=== PATIENT | female | born 1940 | race Caucasian/White ===

== ENCOUNTER 2017-10-15 13:21 | Outpatient (CLI) | payer OTHER, MEDICARE ==
--- NOTE | 2017-10-15 18:42 | MRI ---
MRI CERVICAL SPINE WITHOUT CONTRAST: INDICATIONS: Cervical radiculopathy with bilateral , right greater than left. COMPARISON: No comparisons are available. TECHNIQUE: Multiplanar, multisequence MR images were obtained of the cervical spine without IV contrast. FINDINGS: The visualized aspects of the posterior fossa are unremarkable. There is a bony hemangioma at C7 and at T2. At the C2-C3 level, there is a central protrusion mildly effacing the ventral subarachnoid space and contacting the central aspect of the spinal cord, without evidence of cord compression. There are se day left facet joint degenerative changes and mild to moderate left neural foraminal narrowing. At C3-C4, there is a broad-based disk bulge with uncovertebral hypertrophy and facet joint degenerati ve change inducing mild to moderate bilateral neural foraminal narrowing and mild central canal narro wing. At C4-C5, there is a broad-based bulge with facet hypertrophy and uncovertebral hypertrophy inducing mild bilateral neural foraminal narrowing and mild central canal narrowing. At C5-C6, there is uncovertebral hypertrophy with facet joint degenerative change, greater on the lef t, inducing severe left and mild to moderate right neural foraminal narrowing. At C6-C7, there is a broad-based bulge, uncovertebral hypertrophy, and facet joint degenerative looney e, inducing moderate left and mild to moderate right neural foraminal narrowing. There is mild centr al canal narrowing at this level. At C7-T1, there is no appreciable central canal or neural foraminal narrowing. IMPRESSION: Multilevel central canal and neural foraminal narrowing, as detailed above. POS: [facility]
== END 2017-10-15 13:22 | disposition home or self-care (01) ==
LOC: TBSIIMAG 13:21
PROVIDERS: ATTEND Neurological Surgery
DX: M54.12 Radiculopathy, cervical region (principal); M48.02 Spinal stenosis, cervical region; M99.81 Other biomechanical lesions of cervical region
CPT/HCPCS: 72141

== ENCOUNTER 2017-11-16 07:34 | Outpatient (CLI) | payer OTHER, MEDICARE ==
--- NOTE | 2017-11-16 09:27 | MRI ---
RIGHT SHOULDER MRI WITHOUT IV CONTRAST: HISTORY: A 7-year-old female with a history of right shoulder pain since June. FINDINGS: Multiplanar, multisequence MRI examination of the right shoulder is performed. AC joint degenerative changes are noted with some downsloping of the anterior and lateral acromion with some fluid in suba cromial and subdeltoid bursa and a small undersurface lateral acromial spur. Partial thickness under surface minimally delaminating tear of the supraspinatus tendon is noted, but no complete full thickn ess retracted tear. Small low-grade undersurface tear of the infraspinatus. Subscapularis tendon de monstrates several undersurface and delaminating tears. The biceps tendon has a slightly split-type appearance in the region of the upper bicipital groove probably related to a split-type tear extendin g intraarticularly with some associated biceps tendinopathy. Somewhat blunted degenerated-appearing labrum. Rotator cuff muscles within normal limits for signal and volume. IMPRESSION: Partial thickness undersurface and delaminating tears of the supraspinatus and infraspinatus and subs capularis tendons. Minimal split-type tear of the biceps tendon at the level of the upper bicipital groove. Blunted degenerative-appearing labrum. Acromioclavicular joint arthrosis with fluid within the subacromial subdeltoid bursa. POS: OFF
== END 2017-11-16 07:35 | disposition home or self-care (01) ==
LOC: TBSIIMAG 07:34
PROVIDERS: ATTEND Orthopaedic Surgery
DX: M25.511 Pain in right shoulder (principal); M75.101 Unspecified rotator cuff tear or rupture of right shoulder, not specified as traumatic; S46.911A Strain of unspecified muscle, fascia and tendon at shoulder and upper arm level, right arm, initial encounter; M19.011 Primary osteoarthritis, right shoulder

== ENCOUNTER 2017-12-02 10:30 | Observation (INO) | payer OTHER, MEDICARE ==
[2017-12-02] MEDS ORDERED: Nitroglycerin 2% Ointment 1 INCH/1 GM Packet ONE (10:52)
[2017-12-02 10:59] LABS: #Eosinphils 0.2 thou/uL (0.0-0.7); #Lymphocytes 2.4 thou/uL (1.20-3.40); #Monocytes 0.6 thou/uL (0.11-0.59); #Neutrophils 7.6 thou/uL (1.40-6.50); %Basophils 0.3 % (0.0-1.0); %Eosinophils 1.7 % (0.0-10.0); %Lymphocytes 22.7 % (21.0-51.0); %Monocytes 5.1 % (0.0-10.0); %Neutrophils 70.2 % (42.0-75.0); Hemoglobin 13.4 g/dL (12.0-16.0); Mean Corpuscular HGB CONC 34.2 g/dL (32.0-36.0); Mean Corpuscular Hemoglobin 31.2 pg (27.0-31.0); Mean Corpuscular Volume 91.4 fl (81.0-99.0); Mean Platelet Volume 6.6 fL (7.4-10.4); Platelet Count 247 thou/uL (130-400); Red Blood Cell (RBC) Count 4.28 mill/uL (4.20-5.40); White Blood Cell (WBC) Count 10.8 thou/uL (4.8-10.8)
[2017-12-02 11:21] LABS: ALT (SGPT) 11 U/L (8-55); AST (SGOT) 15 U/L (5-34); Albumin 4.1 g/dL (3.4-4.8); Alkaline Phosphatase 126 U/L (40-150); Anion Gap 13 mmol/L (10-20); BUN (Urea Nitrogen) 11 mg/dL (9.8-20.1); Bilirubin, Total 0.4 mg/dL (0.2-1.2); CK (CPK) 39 U/L (29-168); Calc. Creatinine Clearance 0 mL/min (70-130); Calcium 9.6 mg/dL (7.8-10.44); Carbon Dioxide 28 mmol/L (23-31); Chloride 104 mmol/L (98-107); Estimated GFR-MDRD 87; Globulin 3.3 g/dL (2.4-3.5); Glucose 101 mg/dL (83-110); Lipase 39 U/L (8-78); Potassium 4.2 mmol/L (3.5-5.1); Protein, Total 7.4 g/dL (6.0-8.3); Sodium 141 mmol/L (136-145)
[2017-12-02 11:23] LABS: CKMB 1.1 ng/mL (0-6.6); Troponin I Less than 0.010 ng/mL (< 0.028)
--- NOTE | 2017-12-02 13:25 | RAD ---
CHEST 1 VIEW: HISTORY: Pain. COMPARISON: 03/26/15. FINDINGS: Atherosclerosis of the aorta. Normal cardiac silhouette. The pulmonary vessels and hilum are normal . Costophrenic angles are clear. Lungs are hyperinflated. Interstitial opacities in the lung bases may represent edema or infiltrate upon chronic change. No pneumothorax. IMPRESSION: Bibasilar interstitial opacities due to edema or infiltrate. Continued surveillance. POS: [facility]
[2017-12-02] MEDS ORDERED: Enoxaparin Sodium 60 MG/0.6 ML SYRINGE ONE (13:29)
[2017-12-02 14:15] LABS: Troponin I 0.012 ng/mL (< 0.028)
[2017-12-02] MEDS ORDERED: Acetaminophen 325 MG TAB PO PRN (15:31)
[2017-12-02] MEDS ORDERED: Ondansetron ODT 4 MG TAB PO PRN (15:31)
[2017-12-02] MEDS ORDERED: Ondansetron HCl/PF 4 MG/2 ML Vial IVP PRN (15:31)
[2017-12-02 16:26] VITALS: BMI 19.9
[2017-12-02] MEDS: Metoprolol Tartrate 25 MG TAB PO SCH (17:24)
--- NOTE | 2017-12-02 17:49 | HP ---
DATE OF ADMISSION: 12/02/2017 TIME OF SERVICE: 1530 hours. PRIMARY CARE PHYSICIAN: Dr. Hussain Easton. CHIEF COMPLAINT: Chest discomfort. 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 She was at work today and developed acute onset of left-sided jaw tightness that radiated down to the center of her chest. She immediately was concerned that it did not go away and presented to the [facility] for evaluation. She had episodes like this before, but has not had evaluation. He r last stress test was about 15 years ago. She went to the ER for evaluation. There, her EKG and labs were normal. Her blood pressure on arriv al was elevated at 212/115 and after nitro paste was down to 169/93. Her symptoms resolved with the initial set of medications I gave her. She denied any diaphoresis, nausea or vomiting. No cough or sputum production, no pleuritic component. She does not know of any history of her having exertional chest pain at all. It is better now. She is eating a chicken sandwich from wings and things and otherwise has no other current complaints. PAST MEDICAL HISTORY: 1. Hypertension. 2. Right arm pain, she has seen Orthopedics and has seen General Surgery about possible carpal tunne l problems. She has not seen a neurologist yet. MEDICATIONS: 1. Atenolol 25 mg p.o. daily. 2. Ibuprofen 800 mg t.i.d. p.r.n. 3. Tramadol as needed for her arm pain. PAST SURGICAL HISTORY: Includes, 1. Left knee ORIF after following fracture. 2. Bilateral hip repairs after fracture. 3. Hysterectomy. 4. Appendectomy remotely. ALLERGIES: VANCOMYCIN causes red man syndrome but also causes throat swelling, difficulty breathing. FAMILY HISTORY: Significant for dad at age 75 with lung cancer. Mom at age 83 with a hear t attack with symptoms of heart disease starting in her 50s. SOCIAL HISTORY: Negative for past tobacco, but does not used any in about a year. She smoked about 1/2 pack per day for about 25 years. 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 REVIEW OF SYSTEMS: All systems were reviewed and negative except as stated as per HPI. PHYSICAL EXAMINATION: VITAL SIGNS: Temperature 98.7, pulse 67, blood pressure initially was 212/115 and then 169/93, respi ratory rate 20, satting 97% on room air. GENERAL: She is awake. She is alert. She is oriented x3. She is age appropriate appearing white f emale, appears to be in 0 distress. HEENT: Normocephalic, atraumatic. Pupils equal, round, react to light bilaterally, mucous membranes are moist. No visible lesions or thrush. NECK: Supple. She has no lymphadenopathy, JVD or thyromegaly. She has normal carotid upstrokes wit hout bruits. CHEST: Clear to auscultation bilaterally. She has good air movement. Symmetric chest excursion. N o prolonged expiratory phase. No wheezes, no rales or rhonchi. CARDIOVASCULAR: Normal S1, S2. No S3, S4. She has no murmurs. ABDOMEN: Soft. It is nontender, nondistended. Her bowel sounds present in all 4 quadrants. No eliot ound, rigidity or guarding. EXTREMITIES: No cyanosis, of clubbing. She has got no edema, 2+ dorsalis pedis, and posterior tibia l pulses bilaterally. SKIN: Warm, moist and well perfused. She has no rash, no lesions. Capillary refill less than 2 sec onds. MUSCULOSKELETAL: Normal to inspection. Large joints appear normal. There is no inflammation, no pa lpable effusions. NEUROLOGIC: Shows cranial nerves II through XII are grossly intact. She has no focal neurologic def icits, 5/5 strength in all 4 of her left lower extremities and normal speech pattern. LABORATORY DATA: Sodium 141, potassium 4.8, chloride 104, bicarb 28, BUN 11, creatinine 0.66, glucos e 101 and calcium 9.6. Liver function completely within normal limits. CBC showed a white count of 10.8, hemoglobin 13.4, hematocrit 39.1, and platelet count is 247,000. Total CK was 39. CK-MB was 1.1. Troponin I was undetectable less than 0.010. Lipase of 39. D-dime r barely elevated at 0.44 with an upper limit of normal being 0.43 and BNP normal at 74.7. Her chest x-ray showed slight hyperexpansion but no acute cardiopulmonary disease. CT angiogram could not be done due to iodine allergy. ASSESSMENT AND PLAN: 1. Jaw and chest discomfort. Certainly, it could represent acute coronary syndrome. We will contin ue metoprolol, nitro paste, p.r.n. hydralazine to keep her pressure control, aspirin and she got a do se of Lovenox in the emergency department. We will get serial cardiac biomarkers, watch her on the t elemetry monitor and watch her overnight. She does well and has negative markers, may need a stress test in the morning. 2. Hypertensive urgency. Blood pressure 212/115 on arrival, her symptoms resolved and her pressure came down. Certainly, it could be subendocardial injury secondary to her increased pressures. We wi ll again trend her markers as above. 3. Hypertension, essential, chronic. The patient is on atenolol been on that for a long time. We w ill hold that for now. She is going to be on metoprolol, and nitro paste for the time being. 4. Chronic right arm pain: Recommend the patient follow up with Neurology as an outpatient. She ma y need an EMG and nerve conduction study to assess her weakness and pain. The patient will be placed in observation overnight.
[2017-12-02 18:38] LABS: Troponin I Less than 0.010 ng/mL (< 0.028)
[2017-12-02] MEDS: Nitroglycerin 2% Ointment 1 INCH/1 GM Packet TOP SCH (21:03)
[2017-12-02] MEDS: Famotidine 20 MG TAB PO SCH (21:03)
[2017-12-03 00:35] LABS: CKMB 0.8 ng/mL (0-6.6); Troponin I Less than 0.010 ng/mL (< 0.028)
[2017-12-03] MEDS: Nitroglycerin 2% Ointment 1 INCH/1 GM Packet TOP SCH (05:59)
[2017-12-03 06:46] LABS: #Basophils 0.1 thou/uL (0.0-0.2); #Eosinphils 0.1 thou/uL (0.0-0.7); #Monocytes 0.5 thou/uL (0.11-0.59); #Neutrophils 4.5 thou/uL (1.40-6.50); %Basophils 0.9 % (0.0-1.0); %Eosinophils 1.6 % (0.0-10.0); %Lymphocytes 27.9 % (21.0-51.0); %Monocytes 6.5 % (0.0-10.0); %Neutrophils 63.2 % (42.0-75.0); Hemoglobin 11.9 g/dL (12.0-16.0); Mean Corpuscular HGB CONC 33.9 g/dL (32.0-36.0); Mean Corpuscular Hemoglobin 31.3 pg (27.0-31.0); Mean Corpuscular Volume 92.1 fl (81.0-99.0); Mean Platelet Volume 6.8 fL (7.4-10.4); Platelet Count 215 thou/uL (130-400); RBC Distribution Width 11.9 % (11.5-14.5); White Blood Cell (WBC) Count 7.1 thou/uL (4.8-10.8)
[2017-12-03 07:05] LABS: Anion Gap 10 mmol/L (10-20); BUN (Urea Nitrogen) 10 mg/dL (9.8-20.1); Calc. Creatinine Clearance 70 mL/min (70-130); Calcium 9.1 mg/dL (7.8-10.44); Carbon Dioxide 28 mmol/L (23-31); Cardiac Risk 3.5 (Less than 4.5); Chloride 105 mmol/L (98-107); Cholesterol 147 mg/dl (< 200 Desired); Estimated GFR-MDRD Greater than 90; Glucose 99 mg/dL (83-110); HDL Cholesterol 42 mg/dL (>60 Neg Risk); LDL Cholesterol, Calculated 86 mg/dL; Potassium 3.8 mmol/L (3.5-5.1); Sodium 139 mmol/L (136-145); Triglycerides 95 mg/dL (Less than 150)
[2017-12-03 07:10] LABS: CKMB 0.7 ng/mL (0-6.6); Troponin I Less than 0.010 ng/mL (< 0.028)
[2017-12-03] MEDS ORDERED: Metoprolol Tartrate 25 MG TAB PO SCH (09:00)
[2017-12-03] MEDS ORDERED: Aspirin 325 MG TAB PO SCH (09:00)
[2017-12-03] MEDS ORDERED: Lisinopril 10 MG TAB PO SCH (09:15)
--- NOTE | 2017-12-03 09:15 | PDOC.PN ---
- Subjective Encounter Start Date: 12/03/17 Encounter Start Time: 10:10 Subjective: Patient without further chest pain. 5-6 months of right arm and bilateral -: shoulder pain, interferring with sleep. BP has been up since then. MRI -: neck results by ortho pending. - Objective Resuscitation Status: Resuscitation Status FULL:Full Resuscitation MAR Reviewed: Yes Vital Signs & Weight: Vital Signs (12 hours) Temp Pulse Resp BP Pulse Ox 12/03/17 08:00 98.8 F 72 18 12/03/17 07:20 98.8 F 72 18 204/95 H 94 L 12/03/17 04:32 98.3 F 73 14 175/90 H 94 L 12/03/17 00:25 79 14 183/88 H 94 L Weight Weight 131 lb 4.8 oz I&O: 12/02/17 12/03/17 12/04/17 06:59 06:59 06:59 Intake Total 270 Balance 270 Result Diagrams: 12/03/17 06:14 12/03/17 06:14 Phys Exam - Physical Examination Constitutional: NAD HEENT: moist MMs Respiratory: no wheezing, no rales, no rhonchi Cardiovascular: RRR, no significant murmur Gastrointestinal: soft, positive bowel sounds Neurological: non-focal, moves all 4 limbs Psychiatric: normal affect, A&O x 3 Dx/Plan (1) Chest pain, rule out acute myocardial infarction Code(s): R07.9 - CHEST PAIN, UNSPECIFIED Status: Resolved Comment: cardiac markers and EKG negative, will need outpatient stress test (2) Hypertensive emergency Code(s): I16.1 - HYPERTENSIVE EMERGENCY Status: Acute Comment: Still with labile HTN, will increase meds - Plan cont current plan of care Increase Metoprolol, add low dose ARB. -: Will need outpatient f/u with cardiology and likely stress test -: Monitor BP and release if better after lunch. * . - Discharge Day Encounter end time: 10:25
[2017-12-03] MEDS: Metoprolol Tartrate 25 MG TAB PO SCH (09:26)
[2017-12-03] MEDS: Famotidine 20 MG TAB PO SCH (09:27)
[2017-12-03] MEDS ORDERED: Valsartan 80 MG TAB PO SCH (10:30)
[2017-12-03 12:43] VITALS: BP 174/84; TEMP 98.5
--- NOTE | 2017-12-03 13:51 | DIS ---
PRIMARY CARE PHYSICIAN: Delmy Bosch NP REASON FOR ADMISSION: Chest pain. DIAGNOSES AT DISCHARGE: 1. Chest pain, resolved. 2. Hypertensive emergency, resolved. 3. Chronic right upper extremity pain. 4. Essential hypertension, uncontrolled. PROCEDURES: None. CONSULTATIONS: None. 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 She is seeing Orthopedics for this and was actually supposed to get her MRI results of her neck today. She came i n because she was having acute onset of left-sided jaw tightness radiating down the center of her [address] and was noted to have severe elevated blood pressures. Blood pressure in the emergency room was 2 12/115. The patient was given nitro paste and blood pressure improved, and her pain went away. She was watched overnight on telemetry, had negative cardiac markers x3, normal EKG. Her blood pressure rebounded and was in the 200s this morning, so we changed her home medications to metoprolol 50 mg tw ice a day as well as adding an ARB, because lisinopril apparently causes a cough in her. The patient 's blood pressure improved markedly with 170s at the time of discharge, and she was asymptomatic. DISCHARGE MANAGEMENT: Discharged home. Follow up with primary care physician in the next 2-3 days t o continue titrating blood pressure medicines. She is to check her blood pressure daily and make a l og to bring in to her primary care physician. She also needs to follow up with a high density talc coater operator in the next 1-2 weeks and will likely end up needing an outpatient stress test. ACTIVITY: As tolerated. DIET: Healthy heart, low sodium diet. DISCHARGE MEDICATIONS: 1. Aspirin 81 mg daily, 30 tablets dispensed. 2. Metoprolol tartrate 50 mg twice a day, 60 tablets dispensed. 3. Valsartan 80 mg daily, 30 tablets dispensed.
[2017-12-04] MEDS ORDERED: Lisinopril 10 MG TAB PO SCH (09:00)
[2017-12-04] MEDS ORDERED: Valsartan 80 MG TAB PO SCH (09:00)
--- NOTE | 2017-12-08 15:08 | EKG ---
Test Reason : Blood Pressure : / mmHG Vent. Rate : 069 BPM Atrial Rate : 069 BPM P-R Int : 134 ms QRS Dur : 086 ms QT Int : 388 ms P-R-T Axes : 049 050 060 degrees QTc Int : 415 ms Normal sinus rhythm Voltage criteria for left ventricular hypertrophy Abnormal ECG Confirmed by GIDEON LEMA, ARMANI ([id number]), manager editorial SUJATA WELCH ([id number]) on 12/08/2017 3:08:12 PM Referred By: Confirmed By:ARMANI MENESES MD
== END 2017-12-03 13:41 | disposition home or self-care (01) ==
LOC: ERS 10:30 → 2SW 15:29
PROVIDERS: ADMIT Internal Medicine Infectious Disease; ATTEND Internal Medicine Infectious Disease
DX: R07.89 Other chest pain (principal); I16.1 Hypertensive emergency; I10 Essential (primary) hypertension; G89.29 Other chronic pain; M79.601 Pain in right arm; Z87.891 Personal history of nicotine dependence; Z79.899 Other long term (current) drug therapy; Z88.1 Allergy status to other antibiotic agents; Z91.041 Radiographic dye allergy status
CPT/HCPCS: 36415; 36416; 71045; 80048; 80053; 80061; 82553; 83690; 83735; 83880; 84484; 85025; 85379; 93005; 96360; 96361; 96372; G0378; J1650

== ENCOUNTER 2018-10-19 21:19 | Emergency (ER) | payer OTHER, MEDICARE ==
[~2018-10-19 21:19] MED LIST: ISOVUE-370 76%-LOCM 1 ML ONE
--- NOTE | 2018-10-19 21:50 | RAD ---
FPortable chest: HISTORY: Chest pain. COMPARISON: 12/02/2017. Lungs show hyperexpansion. No infiltrate or vascular congestion. Heart size within normal range. Aort ic calcification is seen. IMPRESSION: No acute finding. No interval change.
[2018-10-19 21:55] LABS: #Basophils 0.1 thou/uL (0.0-0.2); #Eosinphils 0.2 thou/uL (0.0-0.7); #Lymphocytes 2.2 thou/uL (1.20-3.40); #Monocytes 0.4 thou/uL (0.11-0.59); #Neutrophils 5.5 thou/uL (1.40-6.50); %Basophils 0.7 % (0.0-1.0); %Eosinophils 1.8 % (0.0-10.0); %Lymphocytes 26.9 % (21.0-51.0); %Monocytes 4.9 % (0.0-10.0); %Neutrophils 65.7 % (42.0-75.0); Hemoglobin 13.4 g/dL (12.0-16.0); Mean Corpuscular HGB CONC 33.7 g/dL (32.0-36.0); Mean Corpuscular Hemoglobin 31.6 pg (27.0-31.0); Mean Corpuscular Volume 93.8 fL (78.0-98.0); Platelet Count 241 thou/uL (130-400); RBC Distribution Width 11.9 % (11.5-14.5); Red Blood Cell (RBC) Count 4.24 mill/uL (4.20-5.40); White Blood Cell (WBC) Count 8.3 thou/uL (4.8-10.8)
[2018-10-19 22:12] LABS: ALT (SGPT) 25 U/L (8-55); AST (SGOT) 80 U/L (5-34); Albumin 3.7 g/dL (3.4-4.8); Alkaline Phosphatase 144 U/L (40-150); Anion Gap 13 mmol/L (10-20); BUN (Urea Nitrogen) 14 mg/dL (9.8-20.1); Bilirubin, Total 0.2 mg/dL (0.2-1.2); CK (CPK) 36 U/L (29-168); Calc. Creatinine Clearance 0 mL/min (70-130); Calcium 9.1 mg/dL (7.8-10.44); Carbon Dioxide 27 mmol/L (23-31); Chloride 103 mmol/L (98-107); Estimated GFR-MDRD 78; Glucose 114 mg/dL (83-110); Potassium 3.9 mmol/L (3.5-5.1); Protein, Total 6.7 g/dL (6.0-8.3); Sodium 139 mmol/L (136-145)
[2018-10-19] MEDS ORDERED: Ketorolac Tromethamine 30 MG/ML VIAL ONE (22:24)
[2018-10-19] MEDS ORDERED: Aspirin Chewable 81 MG TAB ONE (22:24)
[2018-10-19] MEDS ORDERED: Nitroglycerin 2% Ointment 1 INCH/1 GM Packet ONE (22:33)
[2018-10-19] MEDS ORDERED: methylPREDNISolone Sod Succ/PF 125 MG/2 ML VIAL ONE (23:13)
[2018-10-19] MEDS ORDERED: diphenhydrAMINE 50 MG/ML VIAL ONE (23:13)
[2018-10-19] MEDS ORDERED: Famotidine 20 MG TAB ONE (23:13)
--- NOTE | 2018-10-20 08:29 | CT ---
PRELIMINARY REPORT/[facility]/EMERGENCY AFTER HOURS PROCEDURE: EXAM: CT Angiography Chest With Contrast EXAM DATE/TIME: 10/20/2018 12:07 AM CLINICAL HISTORY: 78 years old, female; Pain; Chest pain; Patient HX: FMorgan presents to ed C/O cp onset today around 20: 15 while PT was at work. PT says she has had cp like this about a year ago, and was admitted but they found nothing and they did not do a stress test. PT states the pain was sharp when it first onset, but states it is now more of a pressure. PT reports HTN. PT denies any cardiac fmhx. PT denies any HX of dvts or pe. 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 3D rendering: MIP reconstructed images were created and reviewed. COMPARISON: No relevant prior studies available. FINDINGS: Pulmonary arteries: Normal. No pulmonary emboli. Aorta: Normal. No aortic aneurysm. No aortic dissection. Lungs: Bibasilar atelectasis. No consolidation. No masses. Pleural space: Normal. No pneumothorax. No pleural effusion. Heart: Coronary artery calcification. No cardiomegaly. No pericardial effusion. Lymph nodes: Unremarkable. No enlarged lymph nodes. Bones/joints: Unremarkable. No acute fracture. Soft tissues: Unremarkable. IMPRESSION: No acute findings. Thank you for allowing us to participate in the care of your patient. Dictated and Authenticated by: Divya Snider MD 10/20/2018 12:57 AM Central Time ([place] & [place]) FINAL REPORT EMERGENCY AFTER HOURS CT ANGIO CHEST PERFORMED WITH IV CONTRAST ENHANCEMENT AND 3D RECONSTRUCTIONS: Date: 10/19/18 HISTORY: Chest pain. Patient has a history of iodine allergy, for which she is premedicated for this exam. FINDINGS: The lungs are clear of any infiltrative process. There is some atelectatic change in the lung bases. There are some reticular type changes seen also in the lung bases. This may just represent some gravi ty-dependent atelectasis. No pulmonary nodules are present. Linear change more prominent in the right base, it could represent scar. There are atherosclerotic changes of the aorta. There is good pulmonary artery opacification, there is no CT evidence for pulmonary embolus. The visualized liver parenchyma shows no focal findings. Right and left adrenal glands are normal. IMPRESSION: No CT evidence for pulmonary embolus. This report is in agreement with the preliminary report issued by [facility]. POS: [facility]
== END 2018-10-20 01:44 | disposition home or self-care (01) ==
LOC: ERS 21:19
DX: R07.89 Other chest pain (principal); I10 Essential (primary) hypertension; Z87.891 Personal history of nicotine dependence; Z79.1 Long term (current) use of non-steroidal anti-inflammatories (NSAID); Z79.899 Other long term (current) drug therapy
CPT/HCPCS: 36415; 71045; 71275; 80053; 82550; 84484; 85025; 85379; 93005; 96374; 96375; J1200; J1885; J2930; Q9966

== ENCOUNTER 2019-03-10 13:18 | Emergency (ER) | payer OTHER, MEDICARE ==
[2019-03-10 14:20] LABS: #Eosinphils 0.2 thou/uL (0.0-0.7); #Lymphocytes 1.6 thou/uL (1.20-3.40); #Monocytes 0.4 thou/uL (0.11-0.59); #Neutrophils 4.1 thou/uL (1.40-6.50); %Basophils 0.5 % (0.0-1.0); %Eosinophils 3.2 % (0.0-10.0); %Lymphocytes 25.7 % (21.0-51.0); %Monocytes 6.1 % (0.0-10.0); %Neutrophils 64.6 % (42.0-75.0); Hemoglobin 12.5 g/dL (12.0-16.0); Mean Corpuscular HGB CONC 34.6 g/dL (32.0-36.0); Mean Corpuscular Hemoglobin 32.4 pg (27.0-31.0); Mean Corpuscular Volume 93.7 fL (78.0-98.0); Mean Platelet Volume 6.9 fL (7.4-10.4); Platelet Count 265 thou/uL (130-400); RBC Distribution Width 11.6 % (11.5-14.5); Red Blood Cell (RBC) Count 3.85 mill/uL (4.20-5.40); White Blood Cell (WBC) Count 6.4 thou/uL (4.8-10.8)
--- NOTE | 2019-03-10 14:45 | CT ---
CT ABDOMEN NONCONTRAST CT PELVIS NONCONTRAST: (Urolithiasis protocol) DATE: 03/10/2019 HISTORY: 78-year-old female with right lower quadrant abdominal pain COMPARISON: None available TECHNIQUE: IV injection of iodinated contrast media: None Oral contrast media: None FINDINGS: Other than for urolithiasis, the lack of IV and oral contrast limits the evaluation. Gallbladder has diffuse mural thickening and edema, up to 9 mm thick. Mild pericholecystic fat strand ing consistent with edema. No renal, ureteral, or bladder calculus identified. Bladder decompressed. Multiple screws bilaterally in femoral heads and necks causing streak artifact. Large number of diverticula throughout sigmoid colon without definite evidence of diverticulitis. No small bowel dilation. No definite evidence of a ppendicitis. Within limitations of noncontrast scan, no gross abnormality identified involving bilateral kidneys, liver, or spleen. Diffuse mild dilation of the pancreatic duct. No signs of acute pancreatitis. No abdominal aortic aneurysm. Subsegmental atelectasis at posterior base of right lower lobe. No pleural effusion. IMPRESSION: Evidence for acute cholecystitis.
[2019-03-10 14:46] LABS: ALT (SGPT) 18 U/L (8-55); AST (SGOT) 13 U/L (5-34); Albumin 3.6 g/dL (3.4-4.8); Alkaline Phosphatase 140 U/L (40-150); Anion Gap 12 mmol/L (10-20); BUN (Urea Nitrogen) 7 mg/dL (9.8-20.1); Bilirubin, Total 0.3 mg/dL (0.2-1.2); Calc. Creatinine Clearance 0 mL/min (70-130); Calcium 9.2 mg/dL (7.8-10.44); Carbon Dioxide 30 mmol/L (23-31); Chloride 102 mmol/L (98-107); Estimated GFR-MDRD 81; Glucose 157 mg/dL (83-110); Lipase 36 U/L (8-78); Potassium 3.6 mmol/L (3.5-5.1); Protein, Total 6.6 g/dL (6.0-8.3); Sodium 140 mmol/L (136-145)
[2019-03-10] MEDS ORDERED: Morphine 4 MG/ML VIAL ONE (15:07)
[2019-03-10] MEDS ORDERED: Ondansetron PF 4 MG/2 ML Vial ONE (15:07)
[2019-03-10] MEDS ORDERED: MEROPENEM 1 GM/50 ML 1 GM in Premix Bag 1 BAG IVPB SCH (15:15)
--- NOTE | 2019-03-10 15:16 | RAD ---
CHEST 1 VIEW PORTABLE: Date: 03/10/19 HISTORY: Preoperative exam. COMPARISON: 10/19/18. FINDINGS: Atherosclerosis of aortic knob. Normal cardiac silhouette. Pulmonary vessels and hilum are normal. Co stophrenic angles are clear. Hyperinflation with chronic changes. No mass or consolidation. No pneumo thorax or osseous abnormalities. IMPRESSION: 1. Hyperinflation with chronic changes. 2. Atherosclerosis of aorta. POS: OFF
[2019-03-10] MEDS ORDERED: Ketorolac Tromethamine 30 MG/ML VIAL ONE (15:29)
[2019-03-10 15:41] LABS: Bacteria/HPF None Seen HPF (None Seen); Bilirubin Negative (Negative); Blood, Urine 1+ (Negative); Clarity Clear (Clear); Glucose, Urine (Dipstick) Normal (Negative); Leukocyte Negative Leu/uL (Negative); Nitrite Negative (Negative); Protein, Urine (Dipstick) 30 mg/dL (Neg-Trace); Squamous Epithelial 0-3 HPF (0-3); Urobilinogen 3 mg/dL (Less than 2); WBC/HPF 0-3 HPF (0-3)
--- NOTE | 2019-03-10 15:54 | ULT ---
Gallbladder ultrasound: Multiple grayscale images of right upper quadrant obtained according to protocol. INDICATION: Pain FINDINGS: Liver: No focal hepatic lesion Gallbladder: Echogenic foci with shadowing present, indicative of cholelithiasis. Gallbladder wall: Reliable evaluation of portions of the gallbladder wall is precluded by the degree of shadowing. Visualized aspects of the gallbladder wall do reveal thickening, with gallbladder wall edema, measuring up to 1 cm. Martin's Sign: Negative Common bile duct is normal. Ascites: None IMPRESSION: Cholelithiasis and sonographic findings indicative of cholecystitis. Recommend surgical consultation.
[2019-03-10] MEDS ORDERED: Lorazepam 2 MG/ML VIAL SLOW IVP PRN (16:04)
[2019-03-10] MEDS ORDERED: hydrALAZINE 20 MG/ML VIAL SLOW IVP PRN (16:04)
[2019-03-10] MEDS ORDERED: Morphine 4 MG/ML VIAL SLOW IVP PRN (16:04)
[2019-03-10] MEDS ORDERED: Ondansetron PF 4 MG/2 ML Vial IVP PRN (16:04)
[2019-03-10] MEDS ORDERED: Ondansetron ODT 4 MG TAB PO PRN (16:04)
[2019-03-10] MEDS ORDERED: Morphine 2 MG/ML SYRINGE SLOW IVP PRN (16:04)
[2019-03-10] MEDS ORDERED: Lactated Ringer's 1,000 ML IV SCH (16:15)
[2019-03-10] MEDS ORDERED: Famotidine/PF 20 mg/2ml Vial SLOW IVP SCH (21:00)
[2019-03-10] MEDS ORDERED: Enoxaparin Sodium 40 MG/0.4 ML SYRINGE SC SCH (21:00)
[2019-03-10] MEDS ORDERED: Metoprolol Tartrate 25 MG TAB PO SCH (21:00)
[2019-03-11] MEDS ORDERED: Valsartan 80 MG TAB PO SCH (09:00)
[2019-03-11] MEDS ORDERED: Aspirin 81 mg Enteric Coated Tablet PO SCH (09:00)
== END 2019-03-10 17:25 | disposition home or self-care (01) ==
LOC: ERS 13:18
DX: K81.0 Acute cholecystitis (principal); I10 Essential (primary) hypertension; Z87.891 Personal history of nicotine dependence; Z79.899 Other long term (current) drug therapy
CPT/HCPCS: 36415; 71045; 74176; 76705; 80053; 81003; 81015; 83690; 83880; 84484; 85025; 93005; 96361; 96365; 96375; J1885; J2185; J2270; J2405

== ENCOUNTER 2019-03-11 06:02 | Day surgery (SDC) | payer OTHER, MEDICARE ==
[2019-03-10 17:04] VITALS: BMI 19.8
--- NOTE | 2019-03-11 00:07 | HP ---
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 She has had episodes of bloating, belching, indigestion, but on this occasion has severe epigastric right upper quadrant pain, presented to the emergency room and had an ultrasound of the gallbladder as well as a CAT scan. This revealed acute cholecystitis, cholelithiasis, normal bile duct caliber. Liver function tests were normal. Dr. Desai has asked me to see her. The patient has a dog at home that is and she insisted on going home. She received Levaquin IV. She is scheduled for a laparoscopic cholecystectomy in the morning at 0730. ALLERGIES: VANCOMYCIN, IODINE, CODEINE. SOCIAL HISTORY: Tobacco use until 2 years ago when she had tobacco cessation. Alcohol, rarely. MEDICATIONS: Atenolol twice a day. PAST MEDICAL HISTORY: Hypertension. Pelvic fracture in June 2018. No sequelae. PAST SURGICAL HISTORY: Appendectomy, hysterectomy, right hip, left hip, knee surgery. REVIEW OF SYSTEMS: Ten-point noncontributory. PHYSICAL EXAMINATION: VITAL SIGNS: Weight 59 kg, blood pressure 168/80, heart rate 77, temperature 98.6 degrees. HEAD, EARS, EYES, NOSE AND THROAT: Unremarkable. LUNGS: Clear to auscultation. CARDIAC: Regular rate and rhythm without murmur or gallop. ABDOMEN: Soft, tenderness in the right upper quadrant. No guarding, or rebound. EXTREMITIES: Unremarkable. LABORATORIES: CBC and comprehensive metabolic profile normal. EKG normal. ASSESSMENT: Cholecystitis, cholelithiasis. She received Levaquin today. I would advice her to be on full liquids to avoid stimulating her gallbladder. Risks of infection, bleeding, visceral and biliary injury discussed. She consents. Questions answered. PLAN: Laparoscopic video cholecystectomy outpatient tomorrow. She is scheduled for 0730. Job ID: [id number]
[2019-03-11] MEDS ORDERED: ceFAZolin Sodium (SDC) 2 GM/100 ML BAG ONE (06:55)
[2019-03-11] MEDS ORDERED: Ketorolac Tromethamine 30 MG/ML VIAL ONE (06:55)
[2019-03-11] MEDS ORDERED: Levofloxacin 500 mg/D5W 100 ml Premix Bag ONE (07:06)
[2019-03-11] MEDS ORDERED: Fentanyl 100 MCG/2 ML VIAL ONE ×3 (07:34→09:32)
[2019-03-11] MEDS ORDERED: Bupivacaine HCl 0.5%/Epinephrine 1:200,000/PF 30 ml Vial ONE (07:38)
[2019-03-11] MEDS ORDERED: Ondansetron HCl/PF 4 MG/2 ML Vial IVP PRN (08:29)
[2019-03-11] MEDS ORDERED: Ketorolac Tromethamine 30 MG/ML VIAL IVP PRN (08:29)
[2019-03-11] MEDS ORDERED: Promethazine HCl 25 MG/ML VIAL SLOW IVP PRN (08:29)
[2019-03-11] MEDS ORDERED: HYDROmorphone 2 MG/ML VIAL SLOW IVP PRN (08:29)
[2019-03-11] MEDS ORDERED: Promethazine HCl 25 MG/ML VIAL IM PRN (08:29)
[2019-03-11] MEDS ORDERED: Promethazine HCl 25 MG/ML VIAL ONE (10:54)
--- NOTE | 2019-03-11 11:58 | OP ---
DATE OF PROCEDURE: 03/11/2019 PREOPERATIVE DIAGNOSES: Acute chronic cholecystitis and cholelithiasis. POSTOPERATIVE DIAGNOSES: Acute chronic cholecystitis and cholelithiasis. PROCEDURE PERFORMED: Laparoscopic video cholecystectomy. ANESTHESIA: General, local 0.5% Marcaine with epinephrine, 30 mL total volume used. DESCRIPTION OF PROCEDURE: The patient was taken to the operating room, where under general anesthesia, abdomen was prepared with ChloraPrep and draped in routine fashion. Because of a periumbilical lower midline incision, a right mid subcostal skin incision was made. Pneumoperitoneum to 15 mmHg obtained with a Veress needle, replaced with a 5 port. Local anesthetic was infiltrated in the skin and subcutaneous tissue about all port sites. Right lateral subcostal incision was made, and a 5 port was placed. Right subxiphoid incision was made, and 11 port was placed. Omental adhesions around the umbilicus. Superior umbilical incision was made, and a 5 port was placed through the laparoscope, moved to this port. Gallbladder was acutely inflamed. Inflammatory adhesions taken down with blunt dissection using cautery for hemostasis. Gallbladder wall was very thickened, edematous, and difficult to grasp. Nonetheless, the fundus was grasped at the cephalad. Infundibulum was grasped and reflected laterally. Cystic artery and duct dissected free. Critical view obtained. Cystic artery and duct doubly clipped proximally and divided. Gallbladder dissected free from liver bed, obtaining good hemostasis prior to division of the final peritoneal attachments. Gallbladder and contents, and numeral small stones removed and submitted to Pathology. Good hemostasis ensured with the cautery. Irrigant and pneumoperitoneum evacuated. All instruments were removed. Right subxiphoid fascia approximated with [id number] suture of 0 Vicryl. Skin incisions were approximated with a subdermal 4-0 Monocryl and [place] glue applied. Job ID: [id number]
[2019-03-11] MEDS ORDERED: HYDROcodone/Acetaminophen 5/325 mg Tablet ONE (12:35)
== END 2019-03-11 12:55 | disposition home or self-care (01) ==
LOC: SDC 06:02
PROVIDERS: ATTEND Specialist
PROC: 0FT44ZZ Resection of Gallbladder, Percutaneous Endoscopic Approach (ICD-10-PCS; principal; 2019-03-11)
DX: K80.12 Calculus of gallbladder with acute and chronic cholecystitis without obstruction (principal); I10 Essential (primary) hypertension; Z87.891 Personal history of nicotine dependence; Z88.1 Allergy status to other antibiotic agents; Z88.5 Allergy status to narcotic agent; Z91.041 Radiographic dye allergy status
CPT/HCPCS: 88304; J0131; J0670; J0690; J1885; J1956; J2550; J3010

== ENCOUNTER 2019-04-10 08:42 | Outpatient (CLI) | payer OTHER, MEDICARE ==
--- NOTE | 2019-04-10 10:14 | CT ---
Abdominal CT 04/10/2019 Comparison 03/10/2019 HISTORY: Nausea, vomiting TECHNIQUE: Axial CT imaging at 5 mm intervals from lung bases through pubic symphysis with IV and ora l contrast. Coronal and sagittal reformatted imaging obtained. FINDINGS: There is multifocal atherosclerotic calcification of the abdominal aorta and its branches. The imaged lung bases demonstrate no acute findings. Incidental note is made of granulomatous calcifications within the lung bases. Cholecystectomy clips are present. Pelvis is not imaged on this study. There is a 1.6 cm hypodense lesion which is new when compared to the prior examination, associated wi th the inferior aspect of the right lobe of the liver in the region of the gallbladder fossa. This could represent a small nonspecific postoperative fluid collection in the gallbladder fossa, the subc apsular aspect of the right lobe of the liver, or could represent a dilated cystic duct stump. There is hyperenhancement involving the choe of the proximal common bile duct, cystic duct, and dist al cystic duct in the region of the pancreatic head. These findings are suspicious for cholangitis. No significant intrahepatic biliary dilation. The spleen, pancreas, adrenal glands, and kidneys are grossly unremarkable otherwise. Partially image d bowel demonstrates no focal inflammatory change. No retroperitoneal lymphadenopathy. Retroaortic left renal vein noted. There is multilevel lower lumbar spine facet hypertrophy. There is a stable mild anterior wedge compr ession fracture of L4. No worrisome lytic or blastic bone lesions. IMPRESSION: Hyper enhancement involving choe of the extrahepatic biliary system, suspicious for chol angitis. Small hypodensity in the region of the gallbladder fossa suggesting a probable small postoperative fluid collection measuring 1.[address] Lora 10:10 AM 04/10/2019.
== END 2019-04-10 08:43 | disposition home or self-care (01) ==
LOC: CT 08:42
PROVIDERS: ATTEND Specialist
DX: G89.18 Other acute postprocedural pain (principal); R93.3 Abnormal findings on diagnostic imaging of other parts of digestive tract; Z90.49 Acquired absence of other specified parts of digestive tract
CPT/HCPCS: 74160

== ENCOUNTER 2019-07-23 07:21 | Emergency (ER) | payer OTHER, MEDICARE ==
[2019-07-23] MEDS ORDERED: Ibuprofen 200 MG TAB ONE (07:47)
[2019-07-23] MEDS ORDERED: Acetaminophen 500 MG TAB ONE (07:47)
[2019-07-23 08:07] LABS: #Lymphocytes 1.1 thou/uL (1.20-3.40); #Monocytes 0.6 thou/uL (0.11-0.59); #Neutrophils 3.2 thou/uL (1.40-6.50); %Basophils 0.1 % (0.0-1.0); %Eosinophils 0.1 % (0.0-10.0); %Lymphocytes 22.1 % (21.0-51.0); %Monocytes 11.5 % (0.0-10.0); %Neutrophils 66.1 % (42.0-75.0); Hemoglobin 14.3 g/dL (12.0-16.0); Mean Corpuscular HGB CONC 33.4 g/dL (32.0-36.0); Mean Corpuscular Hemoglobin 31.8 pg (27.0-31.0); Mean Corpuscular Volume 95.5 fL (78.0-98.0); Mean Platelet Volume 7.5 fL (7.4-10.4); Platelet Count 153 thou/uL (130-400); RBC Distribution Width 12.2 % (11.5-14.5); Red Blood Cell (RBC) Count 4.48 mill/uL (4.20-5.40); White Blood Cell (WBC) Count 4.8 thou/uL (4.8-10.8)
--- NOTE | 2019-07-23 08:08 | RAD ---
EXAM: Chest 2 views: HISTORY: Cough COMPARISON: 03/26/2015 FINDINGS: There is a normal-sized cardiomediastinal silhouette. There is no evidence of consolidation, mass, or pleural effusion. The bones are unremarkable. IMPRESSION: No evidence of acute cardiopulmonary disease
[2019-07-23 08:37] LABS: ALT (SGPT) 452 U/L (8-55); AST (SGOT) 415 U/L (5-34); Albumin 3.8 g/dL (3.4-4.8); Alkaline Phosphatase 568 U/L (40-110); Anion Gap 13 mmol/L (10-20); BUN (Urea Nitrogen) 14 mg/dL (9.8-20.1); Bilirubin, Total 0.7 mg/dL (0.2-1.2); Calc. Creatinine Clearance 0 mL/min (70-130); Calcium 8.9 mg/dL (7.8-10.44); Carbon Dioxide 24 mmol/L (23-31); Chloride 99 mmol/L (98-107); Estimated GFR-MDRD 74; Globulin 2.9 g/dL (2.4-3.5); Glucose 145 mg/dL (83-110); Lipase 24 U/L (8-78); Potassium 3.4 mmol/L (3.5-5.1); Protein, Total 6.7 g/dL (6.0-8.3); Sodium 133 mmol/L (136-145)
--- NOTE | 2019-07-23 09:52 | CT ---
CT Abdomen Pelvis WO Con: 07/23/2019 8:56 AM HISTORY: Cough with nausea and abdominal pain COMPARISON: 03/10/2019 TECHNIQUE: Multiple contiguous axial images were obtained and a CT of the abdomen and pelvis without IV contrast . Coronal and sagittal reformats were performed. FINDINGS: This examination is limited for the evaluation of solid organs and vascular structures due to the lac k of intravenous contrast. Lower Chest: Calcified granulomas in the lung bases. Abdomen: Liver: within normal limits. Bile Ducts: Normal caliber. Gallbladder: Removed Pancreas: within normal limits. Spleen: within normal limits. Adrenals: within normal limits. Kidneys: within normal limits. Pelvis: Reproductive Organs: No pelvic masses. Ureters: within normal limits. Bladder: within normal limits. Bowel: Normal caliber. Scattered diverticula in the colon. Mesenteric Lymph Nodes: No enlarged mesenteric lymph nodes. Peritoneum: No ascites or free air, no fluid collection. Vessels: Atherosclerotic calcifications in the aorta Retroperitoneum: within normal limits. Abdominal Wall: within normal limits. Bones: Degenerative changes in the spine. Hardware is seen in both proximal femurs. IMPRESSION: 1. No evidence of acute intraabdominal or pelvic abnormality. 2. Diverticulosis
[2019-07-23 10:16] LABS: Bilirubin Negative (Negative); Blood, Urine 2+ (Negative); Clarity Clear (Clear); Glucose, Urine (Dipstick) Normal (Negative); Leukocyte Negative Leu/uL (Negative); Mucous/LPF Rare LPF (<2+); Nitrite Negative (Negative); Protein, Urine (Dipstick) 50 mg/dL (Neg-Trace); RBC/HPF Greater than 50 HPF (0-3); WBC/HPF 0-3 HPF (0-3)
[2019-07-23 10:30] LABS: Bacteria/HPF Rare-Few HPF (None Seen)
== END 2019-07-23 10:43 | disposition home or self-care (01) ==
LOC: ERS 07:21
DX: J10.1 Influenza due to other identified influenza virus with other respiratory manifestations (principal); Z79.891 Long term (current) use of opiate analgesic; Z79.899 Other long term (current) drug therapy
CPT/HCPCS: 36415; 71046; 74176; 80053; 81003; 81015; 83690; 85025; 87804

== ENCOUNTER 2019-08-24 08:07 | Inpatient (IN) | payer OTHER, MEDICARE ==
[2019-08-24 08:43] LABS: #Lymphocytes 1.4 thou/uL (1.20-3.40); #Monocytes 0.4 thou/uL (0.11-0.59); #Neutrophils 6.4 thou/uL (1.40-6.50); %Basophils 0.5 % (0.0-1.0); %Eosinophils 0.2 % (0.0-10.0); %Lymphocytes 17.4 % (21.0-51.0); %Monocytes 4.3 % (0.0-10.0); %Neutrophils 77.7 % (42.0-75.0); Mean Corpuscular HGB CONC 30.4 g/dL (32.0-36.0); Mean Corpuscular Hemoglobin 29.1 pg (27.0-31.0); Mean Corpuscular Volume 95.7 fL (78.0-98.0); Mean Platelet Volume 7.2 fL (7.4-10.4); Platelet Count 232 thou/uL (130-400); RBC Distribution Width 12.3 % (11.5-14.5); White Blood Cell (WBC) Count 8.2 thou/uL (4.8-10.8)
[2019-08-24] MEDS ORDERED: methylPREDNISolone Sod Succ 40 MG VIAL ONE (08:52)
[2019-08-24] MEDS ORDERED: Famotidine/PF 20 mg/2ml Vial ONE (08:52)
[2019-08-24] MEDS ORDERED: Ondansetron PF 4 MG/2 ML Vial ONE (08:52)
[2019-08-24] MEDS ORDERED: diphenhydrAMINE 50 MG/ML VIAL ONE (08:52)
[2019-08-24] MEDS ORDERED: Morphine 4 MG/ML VIAL ONE (08:56)
[2019-08-24 09:00] LABS: ALT (SGPT) 501 U/L (8-55); AST (SGOT) 547 U/L (5-34); Albumin 4.6 g/dL (3.4-4.8); Alkaline Phosphatase 638 U/L (40-110); Anion Gap 20 mmol/L (10-20); BUN (Urea Nitrogen) 13 mg/dL (9.8-20.1); Bilirubin, Total 7.8 mg/dL (0.2-1.2); Calc. Creatinine Clearance 0 mL/min (70-130); Calcium 10.4 mg/dL (7.8-10.44); Carbon Dioxide 28 mmol/L (23-31); Chloride 99 mmol/L (98-107); Estimated GFR-MDRD 74; Globulin 3.5 g/dL (2.4-3.5); Glucose 114 mg/dL (83-110); Potassium 4.5 mmol/L (3.5-5.1); Protein, Total 8.1 g/dL (6.0-8.3); Sodium 142 mmol/L (136-145)
[2019-08-24 09:15] LABS: Lipase 2568 U/L (8-78)
[2019-08-24 10:12] LABS: Bacteria/HPF None Seen HPF (None Seen); Bilirubin Negative (Negative); Blood, Urine Trace (Negative); Clarity Clear (Clear); Glucose, Urine (Dipstick) Normal (Negative); Leukocyte Negative Leu/uL (Negative); Nitrite Negative (Negative); Protein, Urine (Dipstick) Negative (Neg-Trace); Squamous Epithelial None Seen HPF (0-3); WBC/HPF 0-3 HPF (0-3)
--- NOTE | 2019-08-24 10:45 | CT ---
EXAM: Abdomen and pelvic CT scan with contrast: HISTORY: Abdominal pain, fever COMPARISON: 07/23/2019 FINDINGS: Minimal vertically oriented linear parenchymal changes in the lung bases. Liver: No focal liver masses. New severe dilatation of the common bile duct, common hepatic duct, and intrahepatic ducts with common bile duct measuring 1.3 cm in diameter. Dilatation of the main pancreatic duct somewhat more dilated than prior study. No evidence for an overt intraductal calculus . No pancreatic mass. Minimal enhancement at the level of the ampulla around the distal common duct. Follow-up ERCP should be considered. Gallbladder:Status post cholecystectomy. Pancreas:Dilated pancreatic duct. No focal pancreatic mass. Spleen:Unremarkable. Adrenal glands:Unremarkable. Kidneys:No renal calculus or acute obstruction. Slight fullness of the right upper renal pelvis mo re prominent than on the prior study. Small right renal cyst. Possible small hiatal hernia. No evidence for bowel obstruction. No CT evidence for acute appendicitis. The urinary bladder is unremarkable. Reproductive system:Unremarkable No abscess, adenopathy, or abnormal fluid collection within the abdomen or pelvis. IMPRESSION: Marked dilatation of the common bile duct, common hepatic duct, and intrahepatic ducts with dilatatio n down to the level near the ampulla where there appears to be minimal enhancement of the common duct at this level. Follow-up ERCP is recommended. Other findings as above.
[2019-08-24] MEDS ORDERED: Loratadine 10 MG TAB PO PRN (13:32)
[2019-08-24] MEDS ORDERED: Ondansetron ODT 4 MG TAB PO PRN (13:32)
[2019-08-24] MEDS ORDERED: Calcium Carbonate 500 MG ChewTAB PO PRN (13:32)
[2019-08-24] MEDS ORDERED: Cepastat Lozenges 1 LOZ PO PRN (13:32)
[2019-08-24] MEDS ORDERED: Senokot S 8.6-50 MG TAB PO PRN (13:32)
[2019-08-24] MEDS ORDERED: Sodium Chloride 0.65% Nasal 44 ML BOT EA NARE PRN (13:32)
[2019-08-24] MEDS ORDERED: Ondansetron PF 4 MG/2 ML Vial IVP PRN (13:32)
[2019-08-24] MEDS ORDERED: Fentanyl 100 MCG/2 ML VIAL SLOW IVP PRN (13:32)
[2019-08-24] MEDS ORDERED: Artificial Tears 18 DROP/0.9 ML EA EYE PRN (13:32)
[2019-08-24] MEDS ORDERED: Loperamide HCl 2 MG CAP PO PRN (13:32)
[2019-08-24] MEDS ORDERED: Acetaminophen 325 MG TAB PO PRN (13:32)
[2019-08-24] MEDS ORDERED: Bisacodyl 10 MG SUPP PR PRN (13:32)
[2019-08-24 14:39] VITALS: BMI 19.8
[2019-08-24] MEDS ORDERED: Iopamidol-370 76% 500 ML 1 ML ONE (15:08)
--- NOTE | 2019-08-24 15:28 | CON ---
DATE OF CONSULTATION: 08/24/2019 CHIEF COMPLAINT: Abdominal pain. HISTORY OF PRESENT ILLNESS: Ms. Richards is a 78-year-old woman, who underwent laparoscopic cholecystectomy back in February of 2019. Her liver tests were normal at that time; however, she states that ever since then she has had recurrent episodes of epigastric aching abdominal pain around once per week. The last around 3 hours at a time. She had small gallstones in the gallbladder at the time of her acute cholecystitis attack. This past Sunday, 4 days ago, she had onset of these similar epigastric aching abdominal pain, however, this time it was much more severe and has persisted for several days. 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 However, the pain continued to worsen and she came on to the emergency room for further care. She has had multiple episodes of nausea and vomiting over the last few days. She has been unable to keep anything down for the last couple of days. She has had no diarrhea or constipation. She has had no blood in the stool. In the emergency room, she was found to have significantly elevated lipase and liver tests. She had a CT scan performed that showed dilation of the bile ducts. She has had a month ago an episode of the epigastric pain occurred and she had subjective fever and chills with it. Intermittently, she does get chills when she gets these pain episodes. With this episode, she has had no fever or chills. Her pain is significantly improved, currently after receiving IV fluids and pain medicine in the emergency room. PAST MEDICAL HISTORY: Hypertension. On the pathology report, it is seen that she had multiple adenomatous colon polyps [place] [address] Delatorre. PAST SURGICAL HISTORY: Laparoscopic cholecystectomy in February of 2019, appendectomy, hysterectomy, hip surgery, knee surgery, and pelvic fracture. FAMILY HISTORY: Negative for GI malignancy. SOCIAL HISTORY: She quit smoking a couple of years ago. Rare alcohol. No drugs. FAMILY HISTORY: Negative for GI malignancy. ALLERGIES: IODINE, CODEINE, AND VANCOMYCIN. OUTPATIENT MEDICATIONS: 1. Metoprolol. 2. Tramadol. 3. Zofran. REVIEW OF SYSTEMS: Negative x10 systems reviewed, except as stated in the History of Present Illness. PHYSICAL EXAMINATION: VITAL SIGNS: Temperature is 98.3, pulse 82, and blood pressure 140/82. GENERAL: She is in no acute distress. Alert and oriented x3. HEENT: Eyes have no scleral icterus. Oropharynx is clear without lesions. NECK: No cervical or supraclavicular lymphadenopathy. LUNGS: Clear to auscultation bilaterally. HEART: Regular rate and rhythm without murmur. ABDOMEN: Soft, tender in the epigastric region without guarding. Bowel sounds are present. EXTREMITIES: No lower extremity edema. Cranial nerves are grossly intact. LABORATORY DATA: White blood cell count 8.2; hemoglobin is 16.0, baseline hemoglobin in July was 14.3; and platelets 232. Bilirubin 7.8, AST 547, ALT 501, and alkaline phosphatase 638. Her liver tests were elevated back to July and also March 2019 when her alkaline phosphatase was in the 900 range and ALT in the 200s to 400s and AST 145 to 415. Albumin is 4.6. Lipase today 2568. IMAGING: CT scan of the abdomen and pelvis shows dilation of the common bile duct and intra and extrahepatic ducts. The common bile duct is dilated at 1.3 cm. IMPRESSION: 1. Gallstone pancreatitis. 2. Choledocholithiasis without signs of cholangitis at this time. Her white blood cell count is normal. She has no fever or chills. 3. Dehydration, hemoconcentration secondary to acute pancreatitis. Her baseline hemoglobin is around 14.3, and currently her hemoglobin is 16.0. She did receive a 1 L bolus of normal saline in the emergency room this morning and a 1 L bolus of lactated Ringer's at 1300 hours. We will continue the lactated Ringer's at 150 mL an hour now. 4. Her pain is improved with fluids and pain medicine in the ER. She does not appear to have signs of cholangitis. RECOMMENDATIONS: 1. Continuous infusion of lactated Ringer's. 2. Check trend of her labs tomorrow morning. 3. Plan for ERCP tomorrow. If she show signs of cholangitis, this can be performed more urgently. In light of the previous episodes associated with chills and fever, I will add ceftriaxone to cover until ERCP can be performed. Given the significant elevation of her bilirubin, she likely has significant obstruction of her bile duct. Job ID: [id number]
--- NOTE | 2019-08-24 15:32 | HP ---
PRIMARY CARE PHYSICIAN: Hussain Easton MD REASON FOR ADMISSION: Abdominal pain. HISTORY OF PRESENT ILLNESS: A 78-year-old female who has history of intermittent abdominal pain for last three months. The patient also had laparoscopic cholecystectomy done by Dr. Lora about 2-3 months ago and even after laparoscopic cholecystectomy, the patient was having intermittent right upper quadrant pain. The patient presented to emergency room because she was having worsening of pain for last three days which was predominantly in epigastric region and radiating to back, associated with nausea and episode of vomiting which was bilious. The patient's pain was radiating down as well as in the back. She denies any fever or chills. She denies any diarrhea. She denies any melena or hematochezia. Pain is getting worse after taking food and the patient was not able to tolerate any p.o. intake and that is why she came to emergency room for evaluation. In the emergency room, the patient was hypertensive with blood pressure 220/109 and she was tachycardic. The patient was in lot of abdominal pain and she was given morphine, Zofran, IV fluid, Pepcid and Benadryl and subsequently patient underwent abdomen and pelvis CT scan. The patient was found with marked dilatation of common bile duct. The patient also found with dilated pancreatic duct and her LFT was significantly abnormal. Gastroenterology was notified from emergency room and the patient is being admitted to medical floor for further evaluation and treatment. PAST MEDICAL HISTORY: Hypertension, history of pelvic fracture in June 2018. PAST SURGICAL HISTORY: Appendicectomy, hysterectomy, right hip surgery, left hip surgery, knee surgery, laparoscopic cholecystectomy in February 2019. PAST PSYCHIATRIC HISTORY: Reviewed and negative. REVIEW OF SYSTEMS: CONSTITUTIONAL: Negative for weight loss or gain, ability to conduct usual activities. SKIN: Negative for rash, itching. EYES: Negative for double vision, pain. ENT/MOUTH: Negative for nose bleeding, neck stiffness, pain, tenderness. CARDIOVASCULAR: Negative for palpitations, dyspnea on exertion, orthopnea. RESPIRATORY: Negative for shortness of breath, wheezing, cough, hemoptysis, fever or night sweats. GASTROINTESTINAL: Negative for poor appetite, abdominal pain, heartburn, nausea, vomiting, constipation, or diarrhea. GENITOURINARY: Negative for urgency, frequency, dysuria, nocturia. MUSCULOSKELETAL: Negative for pain, swelling. NEUROLOGIC/PSYCHIATRIC: Negative for anxiety, depression. ALLERGY/IMMUNOLOGIC: Negative for skin rash, bleeding tendency. Please see my HPI for pertinent positives and negatives. All other review of systems reviewed and negative except as mentioned in HPI. ALLERGIES: VICODIN, CODEINE, IODINE, VANCOMYCIN. SOCIAL HISTORY: The patient is single. She has remote history of smoking. She quit smoking about 2 years ago. She denies any alcohol abuse. She denies any other illicit drug abuse. FAMILY HISTORY: No strong family history of premature coronary artery disease, stroke, or cancer. EMERGENCY ROOM COURSE: The patient received IV fluid with Ringer lactate and NS, Benadryl 50 mg, Pepcid 20 mg, Solu-Medrol 40 mg, morphine 4 mg, and Zofran 4 mg. HOME MEDICATION: 1. Metoprolol 50 mg twice daily. 2. Losartan 50 mg daily. 3. Zofran p.r.n. basis. PHYSICAL EXAMINATION: VITAL SIGNS: On arrival, blood pressure 220/109 and improved to 168/100, pulse 117 and improved to 90, respiratory rate 20, temperature 98.3, saturation 98% on room air. Weight 59.8 kg. GENERAL: The patient is currently alert, awake, no obvious acute distress. HEENT: Head; normocephalic, atraumatic. Eyes; pupils round, reactive to light. Extraocular muscle intact. ENT; oropharynx within normal limits. Moist mucous membranes. No oral lesion. No pharyngeal erythema. No exudate. NECK: Supple. No JVD. No meningeal signs of irritation. LUNGS: Clear to auscultation without any rhonchi or rales. CARDIAC: S1, S2 regular. Tachycardia. No murmur. No gallop. No rub. ABDOMEN: The patient does have right upper quadrant tenderness as well as epigastric tenderness. No peritoneal sign. No distention. Bowel sounds present. No organomegaly. No mass. BACK: Unremarkable. No CVA tenderness. EXTREMITIES: Upper extremities passive movement of all joints are normal. Lower. EXTREMITIES: No edema. Good distal pulsation. SKIN: No skin rash. HEMATOLOGICAL: No lymphadenopathy. PSYCHIATRIC: Normal affect. SIGNIFICANT LABORATORY DATA: EKG showing a normal sinus rhythm, LVH. CT abdomen and pelvis showing common bile duct dilated to 1.3 cm in diameter, dilatation of main pancreatic duct. CBC; WBC 8.2, hemoglobin 16.0, platelet 232. BMP; sodium 142, potassium 4.5, chloride 99, carbon dioxide 28, BUN 13, creatinine 0.76, glucose 116, calcium 10.4. LFT; bilirubin 7.8, AST 547, ALT 504, alkaline phosphatase 638, albumin 4.6, lipase 2568. Triglycerides 48. Urinalysis unremarkable. ASSESSMENT AND PLAN: IMPRESSION: 1. Acute abdominal pain, right upper quadrant as well as epigastric, likely due to acute choledocholithiasis. 2. Acute choledocholithiasis. The patient has laparoscopic cholecystectomy and currently the patient has dilated pancreatic duct as well as bile duct which is more than expected. The patient has associated jaundice, but the patient does not have any sepsis, unlikely associated infection. 3. Hypertensive urgency. Most likely, her blood pressure was elevated related with pain. After control of pain, the patient's blood pressure is well controlled. 4. Abnormal LFT due to choledocholithiasis. 5. Acute gallstone pancreatitis, likely due to choledocholithiasis. PLAN: 1. The patient will be admitted to medical floor, Gastroenterology Team will be consulted. The patient will be kept n.p.o. and will continue with IV fluid. We will control her pain with fentanyl p.r.n. basis. Incentive spirometry advised. Protonix 40 mg IV daily. We will closely monitor for any kind of infection. If the patient starts febrile, then we will start antibiotic therapy very quickly. The patient will need MRCP versus ERCP. 2. Deep venous thrombosis prophylaxis. Lovenox 40 mg subcu daily. 3. Gastrointestinal prophylaxis, Protonix 40 mg IV daily. CODE STATUS: The patient is full code. DISPOSITION PLAN: Based on clinical course, we are expecting the patient's stay in hospital more than 2 midnights. Plan of care discussed with the patient in detail. Job ID: [id number]
[2019-08-24] MEDS: Lactated Ringer's 1,000 ML IV SCH ×3 (16:00→21:30)
[2019-08-25] MEDS: Lactated Ringer's 1,000 ML IV SCH ×2 (03:14→11:48)
[2019-08-25 06:06] LABS: CRP (Inflammatory) 1.42 mg/dL (= or < 0.5); Phosphorus 2.1 mg/dL (2.3-4.7)
[2019-08-25 06:17] LABS: ALT (SGPT) 287 U/L (8-55); AST (SGOT) 223 U/L (5-34); Albumin 3.2 g/dL (3.4-4.8); Alkaline Phosphatase 462 U/L (40-110); Anion Gap 10 mmol/L (10-20); BUN (Urea Nitrogen) 14 mg/dL (9.8-20.1); Bilirubin, Total 1.9 mg/dL (0.2-1.2); Calc. Creatinine Clearance 62 mL/min (70-130); Calcium 8.9 mg/dL (7.8-10.44); Carbon Dioxide 29 mmol/L (23-31); Chloride 103 mmol/L (98-107); Estimated GFR-MDRD 81; Globulin 2.5 g/dL (2.4-3.5); Glucose 86 mg/dL (83-110); Lipase 176 U/L (8-78); Magnesium 1.5 mg/dL (1.6-2.6); Potassium 3.5 mmol/L (3.5-5.1); Protein, Total 5.7 g/dL (6.0-8.3); Sodium 138 mmol/L (136-145)
[2019-08-25 07:11] LABS: #Basophils 0.1 thou/uL (0.0-0.2); #Eosinphils 0.1 thou/uL (0.0-0.7); #Lymphocytes 1.7 thou/uL (1.20-3.40); #Monocytes 0.4 thou/uL (0.11-0.59); #Neutrophils 6.7 thou/uL (1.40-6.50); %Basophils 0.6 % (0.0-1.0); %Eosinophils 0.8 % (0.0-10.0); %Lymphocytes 18.8 % (21.0-51.0); %Monocytes 4.8 % (0.0-10.0); Mean Corpuscular HGB CONC 32.6 g/dL (32.0-36.0); Mean Corpuscular Hemoglobin 30.9 pg (27.0-31.0); Mean Corpuscular Volume 94.9 fL (78.0-98.0); Mean Platelet Volume 7.2 fL (7.4-10.4); Platelet Count 172 thou/uL (130-400); RBC Distribution Width 12.1 % (11.5-14.5); Red Blood Cell (RBC) Count 3.88 mill/uL (4.20-5.40); White Blood Cell (WBC) Count 8.9 thou/uL (4.8-10.8)
[2019-08-25] MEDS ORDERED: Magnesium Sulfate 3 GM in Sodium Chloride 0.9% 100 ML IVPB SCH (08:30)
[2019-08-25] MEDS ORDERED: Potassium Phosphate 15 MMOL in Sodium Chloride 0.9% 250 ML 250 ML IVPB SCH (08:30)
[2019-08-25] MEDS ORDERED: Enoxaparin Sodium 40 MG/0.4 ML SYRINGE SC SCH (09:00)
[2019-08-25] MEDS ORDERED: Indomethacin 50 MG SUPP ONE (09:24)
[2019-08-25] MEDS ORDERED: Iothalamate Meglumine 60% 50 ML VIAL FS ONE (09:24)
[2019-08-25] MEDS ORDERED: Meperidine HCl/PF 25 MG/ML VIAL SLOW IVP PRN (10:11)
[2019-08-25] MEDS ORDERED: Promethazine HCl 25 MG/ML VIAL SLOW IVP PRN (10:11)
[2019-08-25] MEDS ORDERED: cefTRIAXone\\ROCEPHIN 1 GM VIAL ONE (10:11)
[2019-08-25] MEDS ORDERED: Lidocaine 1% PF 5 ML VIAL ONE (10:47)
[2019-08-25] MEDS ORDERED: Rocuronium Bromide 10 MG/ML (10ML VIAL) ONE (10:47)
[2019-08-25] MEDS ORDERED: Ondansetron PF 4 MG/2 ML Vial ONE (10:47)
[2019-08-25] MEDS ORDERED: Esmolol 100 MG/10 ML VIAL ONE (10:47)
[2019-08-25] MEDS ORDERED: Metoprolol Tartrate 5 MG/5 ML VIAL ONE (10:47)
[2019-08-25] MEDS ORDERED: Labetalol HCl 100 MG/20 ML VIAL ONE (10:47)
[2019-08-25] MEDS ORDERED: Dexamethasone 20 MG/5 ML VIAL ONE (10:47)
[2019-08-25] MEDS ORDERED: Succinylcholine Chloride 20 MG/ML 10 ml SYRINGE FS ONE (10:47)
[2019-08-25] MEDS ORDERED: PROPOFOL 200 MG/20 ML VIAL ONE (10:47)
--- NOTE | 2019-08-25 11:23 | PDOC.HOSPP ---
- Subjective Encounter Date: 08/25/19 Encounter Time: 10:00 Subjective: Patient seen and examined. No new complaints. No overnight events - Objective Vital Signs & Weight: Vital Signs (12 hours) Temp Pulse Resp BP Pulse Ox 08/25/19 08:00 92 L 08/25/19 07:56 98.0 F 74 16 176/77 H 92 L 08/25/19 07:37 95 08/25/19 05:00 98.9 F 75 18 164/76 H 92 L 08/25/19 03:54 95 08/25/19 00:21 98.3 F 73 16 165/83 H 95 Weight Weight 130 lb 1.164 oz Result Diagrams: 08/25/19 06:47 08/25/19 05:35 Hospitalist ROS - Review of Systems ENT: denies: ear pain, ear discharge, nose pain, nose discharge, nose congestion , mouth pain, mouth swelling, throat pain, throat swelling, other Respiratory: denies: cough, dry, shortness of breath, hemoptysis, SOB with excertion, pleuritic pain, sputum, wheezing, other Cardiovascular: denies: chest pain, palpitations, orthopnea, paroxysmal noc. dyspnea, edema, light headedness, other Gastrointestinal: denies: nausea, vomiting, abdominal pain, diarrhea, constipation, melena, hematochezia, other Genitourinary: denies: dysuria, frequency, incontinence, hematuria, retention, other Musculoskeletal: denies: neck pain, shoulder pain, arm pain, back pain, hand pain, leg pain, foot pain, other - Medication Medications: Active Medications Generic Name Dose Route Start Last Admin Trade Name Freq PRN Reason Stop Dose Admin Fentanyl 25 mcg 08/24/19 13:32 08/24/19 20:09 Sublimaze SLOW IVP 25 mcg Q2H PRN Administration Pain Lactated Ringer's 1,000 mls @ 150 mls/hr 08/24/19 15:00 08/25/19 03:14 Lactated Ringer's IV 1,000 mls .[id number] ARRON Administration - Exam General Appearance: NAD, awake alert Eye: PERRL, anicteric sclera ENT: normocephalic atraumatic, no oropharyngeal lesions Neck: supple, symmetric, no JVD Heart: RRR, no murmur, no gallops, no rubs Respiratory: CTAB, no wheezes, no rales, no ronchi Gastrointestinal: soft, non-tender, non-distended, normal bowel sounds Extremities: no cyanosis, no clubbing, no edema Skin: normal turgor, no lesions Neurological: cranial nerve grossly intact, no focal deficits Musculoskeletal: normal tone, normal strength Psychiatric: normal affect, normal behavior Hosp A/P (1) Choledocholithiasis Code(s): K80.50 - CALCULUS OF BILE DUCT W/O CHOLANGITIS OR CHOLECYST W/O OBST Status: Acute (2) Abnormal LFTs Code(s): R94.5 - ABNORMAL RESULTS OF LIVER FUNCTION STUDIES Status: Acute (3) Acute pancreatitis Code(s): K85.90 - ACUTE PANCREATITIS WITHOUT NECROSIS OR INFECTION, UNSP Status: Acute (4) Hypertensive urgency Code(s): I16.0 - HYPERTENSIVE URGENCY Status: Acute (5) Hypomagnesemia Code(s): E83.42 - HYPOMAGNESEMIA Status: Acute (6) Hypophosphatemia Code(s): E83.39 - OTHER DISORDERS OF PHOSPHORUS METABOLISM Status: Acute - Plan old records reviewed/req, plan discussed w/ family 08/25/19 replace potassium phosphate today ERCP repeat labs tomorrow DC IVF start home medication discussed with family advance diet
--- NOTE | 2019-08-25 11:38 | OP ---
DATE OF PROCEDURE: 08/25/2019 PROCEDURE PERFORMED: Endoscopic retrograde cholangiopancreatography PREOPERATIVE DIAGNOSES: 1. Gallstone pancreatitis. 2. Obstructive liver tests. DESCRIPTION OF PROCEDURE: Informed consent was obtained from the patient. She was sedated with general anesthesia. The duodenoscope was advanced easily to the second portion of the duodenum. The ampulla was identified and appeared somewhat small and unremarkable. The common bile duct was cannulated easily with a sphincterotome and guidewire. Cholangiogram was performed, which revealed a dilated common bile duct to 12 mm. There was no filling defect identified on the cholangiogram. More delayed images did show a filling defect in the distal common bile duct; however, this appears to have been air. A complete sphincterotomy was performed. The balloon was inflated to 12 mm and passed through the bile duct and passed through the sphincterotomy without resistance. There is no persistent filling defect in the bile duct or stone. Occlusion cholangiogram was performed, which confirmed the duct to be clear. There was good drainage of contrast and bile from the duct through the sphincterotomy. The air and fluid were suctioned from the stomach. The procedure was completed. IMPRESSION: 1. Cholangiogram showing a 12-mm common bile duct and normal hepatic ducts. There was a filling defect on delayed cholangiogram images, that appears to have just been an air bubble. She likely passed the stone causing the pancreatitis, which is consistent with a drop in her liver tests today. 2. Complete sphincterotomy performed. 3. Balloon sweep of the bile duct was performed and occlusion cholangiogram confirmed the duct to be clear. There was good drainage of bile and contrast from the duct after the sphincterotomy. RECOMMENDATIONS: 1. Advance diet. 2. Anticipate discharge home tomorrow as long as she is tolerating her diet well. Job ID: [id number]
[2019-08-25] MEDS: Pantoprazole 40 MG VIAL IVP SCH (11:44)
[2019-08-25] MEDS: hydrALAZINE 20 MG/ML VIAL SLOW IVP PRN (12:14)
--- NOTE | 2019-08-25 12:26 | RAD ---
ERCP: DATE: 08/25/2019 A total of 8 fluoroscopic images were presented from an ERCP procedure. INDICATION: Imaging from ERCP. Retained stones. FINDINGS/IMPRESSION: Initial imaging shows dilatation of the common bile duct with mild irregularity. A rounded filling de fect is seen in the lower common duct consistent with retained calculus. There are other filling defe cts which are less well defined. Final image shows a normal caliber duct with no definite filling defect. POS: C
[2019-08-25] MEDS: Losartan 25 MG TAB PO SCH (20:23)
[2019-08-25] MEDS: Metoprolol Tartrate 50 MG TAB PO SCH (20:23)
[2019-08-26 05:57] LABS: ALT (SGPT) 201 U/L (8-55); AST (SGOT) 86 U/L (5-34); Albumin 3.3 g/dL (3.4-4.8); Alkaline Phosphatase 396 U/L (40-110); Anion Gap 10 mmol/L (10-20); BUN (Urea Nitrogen) 12 mg/dL (9.8-20.1); Bilirubin, Total 0.8 mg/dL (0.2-1.2); Calc. Creatinine Clearance 65 mL/min (70-130); Calcium 8.4 mg/dL (7.8-10.44); Carbon Dioxide 29 mmol/L (23-31); Chloride 104 mmol/L (98-107); Estimated GFR-MDRD 87; Globulin 2.4 g/dL (2.4-3.5); Glucose 102 mg/dL (83-110); Protein, Total 5.7 g/dL (6.0-8.3); Sodium 139 mmol/L (136-145)
[2019-08-26] MEDS: Pantoprazole 40 MG VIAL IVP SCH (08:53)
[2019-08-26] MEDS: Metoprolol Tartrate 50 MG TAB PO SCH (08:54)
[2019-08-26] MEDS: Losartan 25 MG TAB PO SCH (08:54)
[2019-08-26 11:55] VITALS: TEMP 97.9
[2019-08-26] MEDS: hydrALAZINE 20 MG/ML VIAL SLOW IVP PRN (12:00)
--- NOTE | 2019-08-26 12:09 | DIS ---
DATE OF ADMISSION: 08/24/2019 DATE OF DISCHARGE: 08/26/2019 PRIMARY CARE PHYSICIAN: Hussain Easton MD. DISCHARGE DISPOSITION: Home. PRIMARY DISCHARGE DIAGNOSES: 1. Acute choledocholithiasis, status post endoscopic retrograde cholangiopancreatography. 2. Acute pancreatitis due to choledocholithiasis. 3. Abnormal LFT due to acute choledocholithiasis and Acute pancreatitis. 4. Hypertensive urgency. 5. Hypomagnesemia and hypophosphatemia. SECONDARY DISCHARGE DIAGNOSIS: Hypertension. PRIMARY PROCEDURE/OPERATION: The patient had ERCP with sphincterotomy. RADIOLOGICAL INVESTIGATION: Abdomen and pelvis CT scan showed dilated intrahepatic and extrahepatic bile duct as well as dilatation of pancreatic duct. SIGNIFICANT LABORATORY DATA: WBC 8.9, hemoglobin 12.0, and platelet 172. Sodium 139, potassium 4.0, BUN 12, creatinine 0.66, calcium 8.4, and phosphorus 2.1. LFT; AST 86, ALT 201, alkaline phosphatase 396, albumin 3.3, and lipase 176. CRP and urinalysis, unremarkable. DISCHARGE MEDICATIONS: 1. Losartan 25 mg p.o. b.i.d. 2. Metoprolol 50 mg p.o. b.i.d. CONTRAINDICATION: None. CODE STATUS: Full code. INPATIENT CLEANER WALL: Dr. Adeel Nettles was consulted while in hospital, who did ERCP. TEST RESULTS PENDING ON DISCHARGE: None. ALLERGIES: IODINE, CODEINE, AND VANCOMYCIN. DISCHARGE PLAN: Posthospital, the patient is instructed to follow up with primary care physician in 1 week as well as Dr. Adeel Nettles in 1 or 2 weeks. HOSPITAL COURSE: A 78-year-old female with above-mentioned medical problem, who was admitted by me. Please see my HPI for more details. The patient was having acute abdominal pain, which was predominantly in epigastric region, which was radiating to back as well as having right upper quadrant pain. In the emergency room, the patient had CT abdomen and pelvis, which showed significantly dilated bile duct as well as pancreatic duct. We suspected choledocholithiasis as the patient has previous history of cholecystectomy. The patient also had associated abnormal LFT. The patient was admitted to the hospital. We consulted Gastroenterology. We kept her n.p.o. and treated with IV fluid and pain control. The next day, her LFT had significant improvement. The patient underwent ERCP and biliary seepage was performed and sphincterotomy was performed. While doing ERCP, it was noted that the patient appeared to be spontaneously passed stone and her LFT also started improving and her pain also started improving. After procedure, we advanced her diet and she tolerated very well and her LFT continued to improve. PHYSICAL EXAMINATION: The patient is seen and examined at bedside today. VITAL SIGNS: At this point, the patient is afebrile, temperature 98; pulse 72; respiratory rate 20; saturation 96% on room air; blood pressure 156/63. Weight 130 pounds. GENERAL: The patient is alert and oriented x3. HEENT: Head; normocephalic, atraumatic. Eyes; pupils are round and reactive to light. Extraocular muscle intact. ENT; oropharynx within normal limits. Moist mucous membranes. No oral lesion. No pharyngeal erythema. No exudate. NECK: Supple. No JVD. No meningeal signs of irritation. LUNGS: Clear to auscultation without any rhonchi or rales. CARDIAC: S1 and S2 regular. No murmur. No gallop. No rub. ABDOMEN: Soft. Bowel sounds present, nontender, and nondistended. No organomegaly. No mass. EXTREMITIES: No edema. NEUROLOGIC: Nonfocal examination. During this admission, the patient did not have any fever or leukocytosis and she was not having any signs of cholangitis and that is why the patient did not require any antibiotic therapy. The patient will continue all her previous medication and follow up with primary care physician and Gastroenterology as instructed. Job ID: [id number] MTDD
[2019-08-26 13:03] VITALS: BP 169/83
== END 2019-08-26 13:08 | disposition home or self-care (01) | DRG 444 ==
LOC: ERS 08:07 → T4-B 13:36
PROVIDERS: ADMIT Internal Medicine; ATTEND Internal Medicine
PROC: 0F798ZZ Dilation of Common Bile Duct, Via Natural or Artificial Opening Endoscopic (ICD-10-PCS; principal; 2019-08-25)
PROC: BF101ZZ Fluoroscopy of Bile Ducts using Low Osmolar Contrast (ICD-10-PCS; 2019-08-25)
DX: K80.50 Calculus of bile duct without cholangitis or cholecystitis without obstruction (principal); K85.10 Biliary acute pancreatitis without necrosis or infection; R17 Unspecified jaundice; I10 Essential (primary) hypertension; Z90.49 Acquired absence of other specified parts of digestive tract; Z90.710 Acquired absence of both cervix and uterus; Z91.041 Radiographic dye allergy status; Z88.8 Allergy status to other drugs, medicaments and biological substances; Z88.5 Allergy status to narcotic agent; I16.0 Hypertensive urgency; E83.42 Hypomagnesemia; E83.39 Other disorders of phosphorus metabolism
CPT/HCPCS: 36415; 74177; 74330; 80053; 81003; 81015; 83690; 83735; 84100; 84478; 85025; 86140; 93005; 96361; 96374; 96375; C9113; J0360; J0696; J1100; J1200; J1610; J2001; J2270; J2405; J2704; J2920; J3010; J3475; J3490; J7050; Q9967; S0028